=== PATIENT | male | born 1985 | race Caucasian/White ===

== ENCOUNTER 2019-01-19 16:59 | Emergency (ER) | payer OTHER ==
[~2019-01-19] VITALS: Ht 190.5 cm; Wt 99.8 kg
[2019-01-19 17:35] LABS: URINE BILIRUBIN NEGATIVE (Negative); URINE BLOOD NEGATIVE (Negative); URINE CLARITY CLEAR; URINE COLOR YELLOW; URINE GLUCOSE-RANDOM* NEGATIVE (Negative); URINE KETONES NEGATIVE (Negative); URINE LEUKOCYTES NEGATIVE (Negative); URINE NITRITE NEGATIVE (Negative); URINE PROTEIN (DIPSTICK) NEGATIVE (Negative); URINE UROBILINOGEN 0.2 E.U./dl (0.2-1.0)
[2019-01-19] MEDS ORDERED: OMEPRAZOLE 20 M20 M1 PO (18:03)
[2019-01-19 18:04] LABS: ABSOLUTE NEUTROPHILS 4.4 thou/uL (1.4-8.2); BASOPHILS 0.5 % (0.0-2.0); HEMATOCRIT 46.7 % (42.0-52.0); HEMOGLOBIN 15.9 gm/dL (14.0-18.0); LYMPHOCYTES 22.6 % (24.0-44.0); MCH 32.3 pg (26.0-34.0); MCHC 34.1 g/dL (28.0-37.0); MCV 94.8 fL (80.0-100.0); PLATELET COUNT 213 thou/uL (150-400); POLYS 65.9 % (36.0-66.0); RBC 4.92 mil/uL (4.50-6.00); RDW 13.2 % (10.5-14.5); WBC 6.7 thou/uL (4.0-11.0)
[2019-01-19 18:11] LABS: CREATININE 0.8 mg/dL (0.7-1.3); POTASSIUM 3.9 mmol/L (3.5-5.1)
[2019-01-19 18:17] LABS: ALBUMIN 3.8 g/dL (3.4-5.0); TOTAL BILIRUBIN 0.3 mg/dL (<0.1-1.0)
[2019-01-19] MEDS ORDERED: ANUSOL-HC25 MG RECTAL (22:20)
[2019-01-19 22:39] VITALS: BP 98/60
== END 2019-01-19 22:52 | disposition home or self-care (01) ==
LOC: ER 16:59
PROVIDERS: Emergency Medicine
DX: K59.00 Constipation, unspecified (principal); K62.5 Hemorrhage of anus and rectum; R11.2 Nausea with vomiting, unspecified